=== PATIENT | male | born 1990 | race Caucasian/White ===

== ENCOUNTER 2017-06-28 11:57 | Emergency (ER) | payer OTHER, BC ==
[~2017-06-28] VITALS: Ht 180.3 cm; Wt 90.7 kg
[~2017-06-28 11:57] MED LIST: AZITHROMYCIN250 MG PO; BACTRIM DS TAB1 EACH PO; BACTROBAN22 GM TOP; BENADRYL25 MG PO; CEPHALEXIN500 MG PO; FLONASE ALLERG9.9 ML NS; IBUPROFEN800 MG PO; NORCO 5-325 TA1 EACH PO
== END 2017-06-28 12:16 | disposition home or self-care (01) ==
LOC: ED 11:57
DX: M79.645 Pain in left finger(s) (principal)

== ENCOUNTER 2020-01-26 19:16 | Emergency (ER) | payer OTHER ==
[~2020-01-26] VITALS: Ht 180.3 cm; Wt 104.3 kg
--- OUTSIDE RECORDS SUMMARY | 2020-01-26 19:18 | XMS ---
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 Tanner has no Care Guidelines for this patient. [place] VISIT COUNT (12 MO.) 1 [facility] TOTAL 1 NOTE: Visits indicate total known visits. ED/C VISIT TRACKING (12 MO.) 01/26/2020 19:16 [facility] [place] TYPE: Emergency COMPLAINT: - NECK PAIN/INJ INPATIENT VISIT TRACKING (12 MO.) No inpatient visits to display in this time frame [id number]
== END 2020-01-26 21:31 | disposition home or self-care (01) ==
LOC: ED 19:16
DX: S13.4XXA Sprain of ligaments of cervical spine, initial encounter (principal); V00.131A Fall from skateboard, initial encounter; Y92.830 Public park as the place of occurrence of the external cause
CPT/HCPCS: 72040; 72125; 99284-25; A9270

== ENCOUNTER 2020-07-08 11:21 | Emergency (ER) | payer OTHER ==
[~2020-07-08] VITALS: Ht 180.3 cm; Wt 106.6 kg
--- OUTSIDE RECORDS SUMMARY | 2020-07-08 11:24 | XMS ---
PreManage Notification: BELEN GALVAN Security Uke Driver Events No recent Security Events currently on file CRITERIA MET - Group Notification - ED - Positive COVID-19 Lab Result - [facility] CARE PROVIDERS There are no care providers on record at this time. Tanner has no Care Guidelines for this patient. Care History Medical/Surgical 01/27/2020 [facility] - [facility] CALLED PATIENT-DISCUSSED SETTING UP PCP IN THE AREA. - [facility] PROVIDED CLINIC INFORMATION IN THE AREA- PATIENT HAS [place]- PATIENT WILL CALL AND SET UP AN APT TO ESTABLISH CARE FOR FURTHER FOLLOW UP NEEDS. E.D. VISIT COUNT (12 MO.) 2 [facility] TOTAL 2 NOTE: Visits indicate total known visits. ED/UCC VISIT TRACKING (12 MO.) 07/08/2020 11:22 [facility] [place] TYPE: Emergency COMPLAINT: - R INDEX FINGER LACERATION 01/26/2020 19:16 [facility] [place] TYPE: Emergency COMPLAINT: - NECK PAIN/INJ DIAGNOSES: - Fall from skateboard, initial encounter - Cervicalgia - Public park as the place of occurrence of the external cause - Sprain of ligaments of cervical spine, initial encounter INPATIENT VISIT TRACKING (12 MO.) No inpatient visits to display in this time frame [id number]
== END 2020-07-08 12:21 | disposition home or self-care (01) ==
LOC: ED 11:21
PROC: 0HQFXZZ Repair Right Hand Skin, External Approach (ICD-10-PCS; principal; 2020-07-08)
DX: S61.210A Laceration without foreign body of right index finger without damage to nail, initial encounter (principal); W27.8XXA Contact with other nonpowered hand tool, initial encounter
CPT/HCPCS: 12001; 73140; 99283-25